=== PATIENT | male | born 1995 | race Caucasian/White ===

== ENCOUNTER 2024-12-31 19:57 | Inpatient (IN) | payer SELFPAY ==
[~2024-12-31] VITALS: Ht 170.2 cm; Wt 75.0 kg
[2024-12-31 20:04] VITALS: O2SAT 100
[2024-12-31] MEDS: LORAZEPAM 2MG/ML UD SYRINGE IM SCH (20:29)
[2024-12-31] MEDS: OLANZAPINE 10 MG/VIAL IM ONE (20:29)
[2024-12-31] MEDS: DIPHENHYDRAMINE 50MG/ML VIAL IM ONE (20:30)
[2024-12-31 20:58] LABS: BASOPHILS % 0.7 % (0.0-2.0); EOSINOPHILS % 0.7 % (0.0-5.0); HEMATOCRIT. 38.6 % (42.0-52.0); HEMOGLOBIN. 13.3 g/dL (14.0-18.0); LYMPHOCYTES % 17.3 % (20.0-50.0); MEAN PLATELET VOLUME 7.5 fl (7.4-10.4); MONOCYTES % 11.6 % (2.0-8.0); NEUTROPHILS % 69.7 % (40.0-76.0); PLATELET 334 x1000/uL (130-400); RED BLOOD CELL COUNT 4.38 mill/uL (4.7-6.1); RED CELL DISTRIBUTION WIDTH 12.6 % (11.6-14.6)
[2024-12-31 21:08] LABS: INR 0.9
[2024-12-31 21:12] LABS: CREATININE 0.7 mg/dL (0.6-1.3)
[2024-12-31 21:13] LABS: ETHANOL BLOOD < 10 mg/dL (<10); UREA NITROGEN BLOOD 13 mg/dL (9-23)
[2024-12-31 21:14] LABS: ASPARTATE AMINOTRANSFERASE 34 IU/L (<34); PROTEIN TOTAL 6.4 g/dL (6.0-8.3)
[2024-12-31 21:15] LABS: BILIRUBIN DIRECT 0.1 mg/dL (<=3.0); BILIRUBIN TOTAL 0.5 mg/dL (0.1-1.0)
[2024-12-31] MEDS ORDERED: ONDANSETRON HCL 4MG/2ML INJ IV PRN (23:15)
[2024-12-31] MEDS ORDERED: ACETAMINOPHEN 325MG TABLET PO PRN (23:15)
[2024-12-31] MEDS ORDERED: IPRATROPIUM/ALBUTEROL 0.5-3(2.5)MG/3ML NEB HHN PRN (23:15)
[2024-12-31] MEDS ORDERED: GUAIFENESIN 200MG/10ML SUGAR FREE UDC PO PRN (23:15)
[2024-12-31] MEDS ORDERED: CLONIDINE 0.1MG TABLET PO PRN (23:15)
[2024-12-31] MEDS ORDERED: MAGNESIUM/ALUMINUM HYDROXIDE/SIMETHICONE 30ML UDC PO PRN (23:15)
[2024-12-31] MEDS ORDERED: LORAZEPAM 0.5MG TABLET PO PRN (23:15)
[2024-12-31] MEDS ORDERED: DOCUSATE SODIUM 100MG CAPSULE PO PRN (23:15)
[2024-12-31] MEDS ORDERED: DEXTROSE 50% WATER 50ML SYRINGE IV PRN (23:30)
[2024-12-31] MEDS ORDERED: LORAZEPAM 2MG/ML UD SYRINGE IV PRN (23:30)
[2025-01-01] MEDS: MVI, ADULT NO.1 10 ML, FOLIC ACID 1 MG, THIAMINE HCL 100 MG in SODIUM CHLORIDE 0.9% 1,0... IV SCH (01:10)
[2025-01-01 05:34] LABS: BASOPHILS % 0.5 % (0.0-2.0); EOSINOPHILS % 0.4 % (0.0-5.0); HEMATOCRIT. 40.9 % (42.0-52.0); HEMOGLOBIN. 13.8 g/dL (14.0-18.0); LYMPHOCYTES % 12.3 % (20.0-50.0); MEAN PLATELET VOLUME 7.4 fl (7.4-10.4); MONOCYTES % 10.0 % (2.0-8.0); NEUTROPHILS % 76.8 % (40.0-76.0); PLATELET 296 x1000/uL (130-400); RED BLOOD CELL COUNT 4.57 mill/uL (4.7-6.1); RED CELL DISTRIBUTION WIDTH 13.0 % (11.6-14.6)
[2025-01-01 05:44] LABS: CREATININE 0.8 mg/dL (0.6-1.3); TRIGLYCERIDE 86 mg/dL (0-150); UREA NITROGEN BLOOD 9 mg/dL (9-23)
[2025-01-01 05:45] LABS: LDL CHOLESTEROL 67 mg/dL (5-100)
[2025-01-01 05:49] LABS: T4 FREE 1.46 ng/dL (0.89-1.76)
[2025-01-01] MEDS: LACTULOSE 20G/30ML UDC PO SCH (06:00)
[2025-01-01 06:46] LABS: TROPONIN I HIGH SENSITIVITY < 4 ng/L (3.0-53)
[2025-01-01 08:18] VITALS: BP 119/83; PULSE 93; RESP 18; TEMP 36.6; O2SAT 96
[2025-01-01 08:20] VITALS: BP 119/83; PULSE 93; RESP 18; TEMP 36.6404
[2025-01-01] MEDS: THIAMINE HCL 100MG TABLET PO SCH (09:00)
[2025-01-01] MEDS: FOLIC ACID 1MG TABLET PO SCH (09:00)
[2025-01-01] MEDS: PANTOPRAZOLE SODIUM 40 MG/VIAL IV SCH (09:48)
[2025-01-01] MEDS: THIAMINE HCL 100 MG/1 ML 2ML VIAL IM NR (10:33)
[2025-01-01] MEDS: DEXT 5%/0.9% NACL 1,000 ML IV SCH (10:34)
[2025-01-01 12:17] VITALS: BP 119/71; PULSE 94; RESP 18; TEMP 37.3
[2025-01-01 16:00] VITALS: BP 105/58; PULSE 99; RESP 19; TEMP 37.3; O2SAT 97
[2025-01-01] MEDS: OLANZAPINE 5MG TABLET ODT PO SCH (17:00)
[2025-01-01] MEDS: NALOXONE HCL 0.4MG/ML 1ML VIAL IV NR (18:21)
[2025-01-01 20:00] VITALS: BP 109/56; PULSE 81; RESP 20; TEMP 36.3; O2SAT 100
[2025-01-02] VITALS: BP 110/62; PULSE 78; RESP 20; TEMP 36.1; O2SAT 99
[2025-01-02 04:00] VITALS: BP 109/72; PULSE 82; RESP 20; TEMP 36.6; O2SAT 98
== END 2025-01-02 07:30 | disposition left against medical advice (07) | DRG 812 ==
LOC: ER 19:57 → 6WST 21:50 → EDBEDREQTM 21:59 → EDBEDREQ 21:59 → ENRESERV 01-01 06:57
PROVIDERS: ADMIT Internal Medicine; ATTEND Internal Medicine
DX: T50.991A Poisoning by other drugs, medicaments and biological substances, accidental (unintentional), initial encounter (principal); G92.8 Other toxic encephalopathy; E72.20 Disorder of urea cycle metabolism, unspecified; M62.82 Rhabdomyolysis; N39.0 Urinary tract infection, site not specified; D64.9 Anemia, unspecified; F39 Unspecified mood [affective] disorder; Z53.21 Procedure and treatment not carried out due to patient leaving prior to being seen by health care provider; K59.00 Constipation, unspecified; F41.9 Anxiety disorder, unspecified; Y92.89 Other specified places as the place of occurrence of the external cause
CPT/HCPCS: 36415; 71045; 80048; 80061; 80076; 80307; 80320; 80329; 82140; 82550; 83735; 84439; 84443; 84484; 85025; 93005; 93970; 96372; 99291; J1200; J2060; J2312; J2470; J3411; J3490; J7030; J7042; G0480